=== PATIENT | female | born 1995 | race Caucasian/White ===

== ENCOUNTER 2020-10-22 09:57 | Observation (INO) ==
[~2020-10-22 09:57] MED LIST: RINGER'S SOLUTION,LACTATED 1,000 ML IV PRN; ceFAZolin SODIUM 1 GM VIAL IV PRN
--- NOTE | 2020-10-22 10:30 | ERNOTE ---
ER Female HPI Date of Service: 10/22/20 Stated Complaint: Heavy bleeding vaginally Presenting Symptoms: vaginal bleeding Time Seen by Provider: 10/22/20 10:16 Source: patient Exam Limitations: no limitations Immunizations: IMMUNIZATION HX Immunizations Up to Date Yes History of Influenza Vaccine No Hx Pneumococcal Vaccination No Allergies/Adverse Reactions: Allergies prednisone Allergy (Mild, Verified 10/22/20 11:09) Other poison oak extract Allergy (Verified 10/22/20 11:09) Home Medications: HOME MEDICATIONS Topiramate [Topamax] 25 mg PO BID 10/20/20 [Last Taken Unknown] Vilazodone HCl [Viibryd] 20 mg PO DAILY 10/20/20 [Last Taken Unknown] traZODone HCL [Trazodone HCl] 100 mg PO HS 10/20/20 [Last Taken Unknown] Pain Score #1 Pain Score: 6 - History of Present Illness Narrative: The patient is a 25 year old female who presents via POV for vaginal bleeding which has been present for 4 days. There are associated symptoms of low pelvic cramping. The patient reports pain to diffuse low pelvic and suprapubic, 6/10. There are no alleviating factors. There are no aggravating factors. Previous treatments have included: none. The past medical history includes: anxiety and depression. The social history is positive for occasional use of e-cigarettes. The patient has had no known ill contacts. Patient states she was previously using Depo-Provera with last injection being in July then in October switched to oral contraceptive. Patient denies previous or event of heavy vaginal bleeding. Patient states that she has been wearing an attends brief due to amount of vaginal bleeding. Patient states she has been filling a pad an hour. Patient states that she has felt shaky and anxious without chest pain or shortness of breath. Patient states she does become lightheaded and feels as thought symptoms resolve when she leans forward. Review of Systems - Review of Systems Constitutional: Present: weakness, fatigue. Absent: fever, chills EYE: Present: no symptoms reported. Absent: vision changes ENT: Present: no symptoms reported. Absent: ear pain, nasal drainage, sore throat Respiratory: Present: no symptoms reported. Absent: shortness of breath, cough Cardiology: Present: no symptoms reported. Absent: chest pain Gastrointestinal/Abdominal: Present: abdominal pain. Absent: nausea, vomiting, diarrhea Genitourinary: Present: other - vaginal bleeding. Absent: dysuria Musculoskeletal: Present: no symptoms reported Skin: Present: no symptoms reported. Absent: rash Neurological: Present: dizziness/light-headedness, weakness. Absent: headache All Other Systems: All systems neg except as marked Medical History (Last Reviewed 10/22/20 @ 10:21 by KATHERYN Higgins) Anxiety Depression Surgical History: Surgical History (Last Reviewed 10/22/20 @ 10:20 by KATHERYN Higgins) History of tonsillectomy Family History: Family History (Last Reviewed 10/22/20 @ 10:20 by KATHERYN Higgins) Other No pertinent family history Social History: (Last Reviewed 10/22/20 @ 10:20 by KATHERYN Higgins) Tobacco: Smoking Status: Former smoker tobacco type: e-cigarettes Alcohol: alcohol intake frequency: a few times a month Substance Use: substance use type: does not use Physical Exam - Physical Exam General Appearance: Present: wd/wn, alert, mild distress Head Exam: Present: normal inspection, no evidence of injury Eye Exam: Normal inspection: bilateral, PERRL: bilateral, EOMI: bilateral, Conjunctivae pale: bilateral - mild Ears, Nose, Throat: Present: normal ENT inspection, normal pharynx Neck: Present: normal inspection Respiratory: Present: no respiratory distress, normal breath sounds, no accessory muscle use, lungs clear Cardiovascular/Chest: Present: no murmur, tachycardia Gastrointestinal/Abdominal: Present: normal bowel sounds, nondistended, soft, no organomegaly, tenderness - diffuse lower abdomen Pelvic Exam: Present: active bleeding - moderate amount of active bleeding with blood pooling in vaginal vault >20ml, large clots with clots within the os, cervical motion tendernes, tender uterus. Absent: tender adnexa Extremity Exam: Present: no edema Neurological Exam: Present: alert, oriented, normal mood/affect, no motor/sensory deficits Skin Exam: Present: normal color, warm/dry Progress - Date and Time Seen: Date and Time: 10/22/20 10:30 Records were requested to be obtained from [facility] in [place] which is where patient was seen and evaluated with outpatient testing yesterday, 10/21/2020. 10/22/20 10:35 Patient was scheduled for follow up with Dr.Mariusz today but due to concern of patient having shortness of breath was sent to ER for medical evaluation. Patient denies shortness of breath but states she feels anxious and shaky. 10/22/20 10:50 Records obtained from [facility] outpatient testing yesterday showing Hgb 8.8. Patient's WBC is slightly elevated from yesterday 11.6 to 12.6, this is likely associated with volume loss. Pelvic ultrasound showed a large heterogeneously echogenic fluid collection in the endometrial cavity that suggested a solid mass concerning for large hematoma. Urologist recommended at that time gynecological consultation. I assume that this is why patient was scheduled for outpatient evaluation with Dr. Vee today. 10/22/20 11:08 Previous visits, lab results over visits from 10/20 through today, pelvic ultrasound results in 2 days exam were reviewed and discussed with Dr. Breen. recommends double dose of control pill through remaining a pack and allowing patient to attempt to pass large clot on her own. Patient needs to be scheduled for follow-up to ensure tolerance and improvement. This plan was discussed with patient and she does not feel comfortable with plan, will reassess following IV hydration. 10/22/20 12:14 Patient remains to have symptoms of dizziness with position changes and anxiety. contacted ER to check on patient progress and states will proceed to ER to evaluate patient for presumed plan for D&C. Will send COVID testing for pre-op in house. Patient verbalizes understanding of plan. 10/22/20 12:49 present and plan for D&C. - Results and Orders Patient's Lab Results:: I have reviewed the patient's lab results. - Vital Signs Patient's Vital Signs:: I have reviewed the patient's vital signs. Vital Signs: Vital Signs 10/22/20 10:10 Pulse Rate 102 H Respiratory Rate 14 Blood Pressure 137/83 O2 Sat by Pulse Oximetry 98 - Progress/Reassessment Chief Complaint: Genitourinary Problem Departure Clinical Impression: Menorrhagia Qualifiers: Menorrhagia type: with irregular cycle Qualified Code(s): N92.1 - Excessive and frequent menstruation with irregular cycle - Departure Disposition: Still a patient Condition: Stable
[2020-10-22 10:32] LABS: Hematocrit 25.8 % (37.0-47.0); Hemoglobin 8.1 gm/dL (12.5-16.0); Mean Cell Volume 86.9 fl (78-100); Mean Corpuscular Hemoglobin 27.3 pg (27-31); Mean Corpuscular Hgb Conc 31.4 g/dl (32-36); Mean Platelet Volume 9.1 fl (8-12.5); Neutrophil # 8.8 K/mm3 (1.3-6.0); Platelet Count 262 K/mm3 (150-450); Red Blood Count 2.97 M/mm3 (4.2-5.4); Red Cell Distribution Width 14.2 % (11.5-14.0); White Blood Count 12.6 K/mm3 (4.0-10.5)
[2020-10-22] MEDS ORDERED: NORMAL SALINE 500 ML IV PRN (10:39)
[2020-10-22 10:49] LABS: Albumin * 3.1 gm/dl (3.4-5.0); Anion Gap 10.6 mmol/L (6.8-13.8); BUN/Creatinine Ratio 13.9 (9.0-21.6); Bilirubin, Total 0.2 mg/dL (0.0-1.1); Ca. Corrected For Albumin 8.7 mg/dL (8.4-10.2); Calcium * 8.3 mg/dL (7.9-10.9); Carbon Dioxide 23.8 mmol/L (24-32.6); Potassium 3.4 mmol/L (3.4-4.6); Total Protein 6.6 gm/dL (6.2-8.2)
[2020-10-22] MEDS ORDERED: LIDOCAINE HCL/EPINEPHRINE 50 ML VIAL IJ ONE ×2 (12:50→14:45)
[2020-10-22] MEDS ORDERED: Silver Nitrate Applicator 10 EACH PACKET TP ONE (12:51)
[2020-10-22] MEDS: NORMAL SALINE 1,000 ML IV PRN ×2 (13:02→14:30)
--- NOTE | 2020-10-22 13:06 | HP ---
Chief Complaint - Chief Complaint Date of Service: 10/22/20 Time of Service: 12:59 Chief Complaint: heavy vaginal bleeding History of Present Illness: 25 year old with a 5 day history of heavy vaginal bleeding. She is soaking through many pads. She has dropped her hemoglobin 3 units, is persistently tachycardic. No other concerns. Medical History (Last Reviewed 10/22/20 @ 13:00 by Patrizia Vee MD) Anxiety Depression Surgical History: Surgical History (Last Reviewed 10/22/20 @ 13:00 by Patrizia Vee MD) History of tonsillectomy Family History: Family History (Last Reviewed 10/22/20 @ 13:00 by Patrizia Vee MD) Other No pertinent family history Social History: (Last Reviewed 10/22/20 @ 13:00 by Patrizia Vee MD) Tobacco: Smoking Status: Former smoker tobacco type: e-cigarettes Alcohol: alcohol intake frequency: a few times a month Substance Use: substance use type: does not use Review Of Systems (GEN) - Review of Systems Generalized/Overall Review: Present: No Symptoms Reported Misc: All systems neg except as marked Immunizations: IMMUNIZATION HX Immunizations Up to Date Yes History of Influenza Vaccine No Hx Pneumococcal Vaccination No Allergies/Adverse Reactions: Allergies Allergy/AdvReac Type Severity Reaction Status Date / Time prednisone Allergy Mild Other Verified 10/22/20 11:09 poison oak extract Allergy Verified 10/22/20 11:09 Home Medications: HOME MEDICATIONS Topiramate [Topamax] 25 mg PO BID 10/20/20 [Last Taken Unknown] Vilazodone HCl [Viibryd] 20 mg PO DAILY 10/20/20 [Last Taken Unknown] traZODone HCL [Trazodone HCl] 100 mg PO HS 10/20/20 [Last Taken Unknown] Exam - Exam Vital Signs: Vital Signs - Last Taken Temp 36.8 C 10/22/20 12:33 Pulse 94 10/22/20 12:33 Resp 14 10/22/20 12:33 BP 109/60 10/22/20 12:33 Pulse Ox 100 10/22/20 12:33 Constitutional: Present: Alert, Oriented x3, Cooperative, No distress ENT Exam: Present: hearing grossly normal Eye Exam: bilateral eye: normal inspection Neck: Present: normal inspection Breasts: Present: Exam deferred Respiratory: Present: lungs clear, normal breath sounds, no respiratory distress Cardiovascular/Chest: Present: regular rate, rhythm Abdomen: Present: soft, nontender, nondistended /Rectal: Present: Exam deferred, Other - heavy vaginal bleeding on the pad Extremity: Present: non-tender, no calf tenderness Skin Exam: Present: normal color, warm/dry, no cyanosis Neurologic: Present: alert, normal mood/affect, oriented x 3 Appearance: Present: appropriate appearance, appropriate insight, neat, no memory impairment Eye contact: Present: cooperative, good eye contact, normal speech Thoughts: Present: normal thought pattern Diagnostic Studies: Abnormal Lab Results 10/22/20 10/22/20 Range/Units 10:26 10:26 WBC 12.6 H (4.0-10.5) K/mm3 RBC 2.97 L (4.2-5.4) M/mm3 Hgb 8.1 L (12.5-16.0) gm/dL Hct 25.8 L (37.0-47.0) % MCHC 31.4 L (32-36) g/dl RDW 14.2 H (11.5-14.0) % Immature Gran % (Auto) 0.60 H (0.001-0.429) % Immature Gran # (Auto) 0.08 H (0.000-0.0310) K/mm3 Neutrophils # 8.8 H (1.3-6.0) K/mm3 Chloride 108 H (97-106) mmol/L Carbon Dioxide 23.8 L (24-32.6) mmol/L Albumin 3.1 L (3.4-5.0) gm/dl Laboratory Results WBC 12.6 K/mm3 (4.0-10.5) H 10/22/20 10:26 RBC 2.97 M/mm3 (4.2-5.4) L 10/22/20 10:26 Hgb 8.1 gm/dL (12.5-16.0) L 10/22/20 10:26 Hct 25.8 % (37.0-47.0) L 10/22/20 10: MCV 86.9 fl (78-100) 10/22/20 10: MCH 27.3 pg (27-31) 10/22/20 10: MCHC 31.4 g/dl (32-36) L 10/22/20 10:26 RDW 14.2 % (11.5-14.0) H 10/22/20 10:26 Plt Count 262 K/mm3 (150-450) 10/22/20 10:26 MPV 9.1 fl (8-12.5) 10/22/20 10:26 Immature Gran % (Auto) 0.60 % (0.001-0.429) H 10/22/20 10:26 Immature Gran # (Auto) 0.08 K/mm3 (0.000-0.0310) H 10/22/20 10:26 Neutrophils % 70.0 % (42-75.0) 10/22/20 10: Lymphocytes % 22.2 % (20-51) 10/22/20 10: Monocytes % 6.1 % (0.0-9) 10/22/20 10: Eosinophils % 0.9 % (0.0-3.0) 10/22/20 10: Basophils % 0.2 % (0.0-1.0) 10/22/20 10:26 Nucleated RBC % 0.0 k/mm3 (0-1) 10/22/20 10:26 Neutrophils # 8.8 K/mm3 (1.3-6.0) H 10/22/20 10:26 Lymphocytes # 2.79 k/mm3 (1.5-3.5) 10/22/20 10: Monocytes # 0.8 k/mm3 (0.0-1.0) 10/22/20 10: Eosinophils # 0.1 k/mm3 (0.0-0.7) 10/22/20 10:26 Absolute Basophils 0.0 k/mm3 (0.0-0.1) 10/22/20 10:26 Sodium 139 mmol/L (132-142) 10/22/20 10:26 Plasma Sodium 139 mmol/L (130-142) 10/22/20 10:26 Potassium 3.4 mmol/L (3.4-4.6) 10/22/20 10:26 Chloride 108 mmol/L (97-106) H 10/22/20 10:26 Carbon Dioxide 23.8 mmol/L (24-32.6) L 10/22/20 10:26 Anion Gap 10.6 mmol/L (6.8-13.8) 10/22/20 10:26 BUN 10 mg/dL (3-23) 10/22/20 10:26 Creatinine 0.72 mg/dL (0.4-1.4) 10/22/20 10:26 Est GFR (Non-Af Amer) 107 mL/min (60-130) D 10/22/20 10:26 BUN/Creatinine Ratio 13.9 (9.0-21.6) 10/22/20 10:26 Random Glucose 85 mg/dL (70-110) D 10/22/20 10:26 Calcium 8.3 mg/dL (7.9-10.9) 10/22/20 10:26 Calcium Adj for Albumin 8.7 mg/dL (8.4-10.2) 10/22/20 10:26 Total Bilirubin 0.2 mg/dL (0.0-1.1) 10/22/20 10:26 AST 42 U/L (0-48) 10/22/20 10:26 ALT 61 U/L (19-67) 10/22/20 10:26 Alkaline Phosphatase 79 U/L (50-170) 10/22/20 10:26 Total Protein 6.6 gm/dL (6.2-8.2) 10/22/20 10:26 Albumin 3.1 gm/dl (3.4-5.0) L 10/22/20 10:26 Serum HCG, Qual Negative (NEGATIVE) 10/22/20 10:30 Assessment/Plan - Narrative Narrative: Proceed with D&C, hysteroscopy. All risks, benefits, and alternatives were explained to the patient and the patient consented to the procedure. The patient received an IVF bolus. Continue IVF until surgery Covid test administered. Awaiting results since the patient is currently hemodynamically stable Pelvic US showed a possible large clot versus mass Admit for overnight observation to determine true blood loss. The patient and her aunt were counseled that she might need either an iron infusion or blood products once true blood loss is determined She wishes to continue OCPs after surgical intervention - Assessment/Plan (1) Abnormal uterine bleeding Problem: Acute (2) Tachycardia Problem: Acute
[2020-10-22] MEDS ORDERED: ACETAMINOPHEN 500 MG TABLET PO PRN (13:08)
[2020-10-22] MEDS ORDERED: LIDOCAINE HCL 20 ML VIAL ONE (14:14)
[2020-10-22] MEDS ORDERED: KETOROLAC TROMETHAMINE 30 MG/ML VIAL ONE (14:15)
[2020-10-22] MEDS ORDERED: fentaNYL CITRATE/PF 50 MCG/ML AMPUL ONE (14:15)
[2020-10-22] MEDS ORDERED: ONDANSETRON HCL/PF 2 MG/ML VIAL ONE (14:22)
--- NOTE | 2020-10-22 15:17 | OR ---
Operative Report - Dictated Report Narrative: Preoperative diagnosis: AUB Postoperative diagnosis: AUB, thickened endometrial lining, uterine septum Procedure: hysteroscopy, D&C Description of the procedure: The patient was taken to the operating room where MAC anesthesia was induced. She was prepped and draped in the lithotomy position in the standard surgical fashion. Attention was then turned to the vagina. A sterile speculum was placed in the vagina. The anterior lip of the cervix was grasped with a single toothed tenaculum. A bilateral paracervical block was performed using a total of 20 mL of lidocaine with epinephrine. The cervical os was gently dilated to an 18F diameter to accommodate the hysteroscope without difficulty. The uterine cavity was directly visualized. The bilateral tubal ostias were visualized and a uterine septum was seen as well. A large clot was removed with the irrigation. The lining was thick anteriorly and posteriorly. A curette was used and endometrial curettings were sent for pathological analysis. All instruments were removed from the patient's vagina. Hemostasis was adequate. All sponge, lap, and needle counts were correct. The patient tolerated the procedure well. She was transferred to the recovery room in stable condition. EBL: minimal Complications: none Specimens: endometrial curettings
--- NOTE | 2020-10-22 15:18 | ANES ---
Anesthesia Pre Procedure Eval Vitals/Labs: Last Vital Signs Temp 36.8 C 10/22/20 14:09 Pulse 97 10/22/20 13:53 Resp 14 10/22/20 13:53 BP 114/56 10/22/20 13:53 Pulse Ox 99 10/22/20 13:53 HOME MEDICATIONS Topiramate [Topamax] 25 mg PO BID 10/20/20 [Last Taken Unknown] Vilazodone HCl [Viibryd] 20 mg PO DAILY 10/20/20 [Last Taken Unknown] traZODone HCL [Trazodone HCl] 100 mg PO HS 10/20/20 [Last Taken Unknown] Allergies/Adverse Reactions: Allergies Allergy/AdvReac Type Severity Reaction Status Date / Time prednisone Allergy Mild Other Verified 10/22/20 11:09 poison oak extract Allergy Verified 10/22/20 11:09 - Planned Procedure Planned Procedure: Heavy bleeding vaginally Medication List Reviewed:: Yes Allergies Verified: Yes Medical History (Last Reviewed 10/22/20 @ 15:17 by Dominick Aceves CRNA) Anxiety Depression Surgical History (Last Reviewed 10/22/20 @ 15:17 by Dominick Aceves CRNA) History of tonsillectomy Family History (Last Reviewed 10/22/20 @ 15:17 by Dominick Aceves CRNA) Other No pertinent family history - Family Anesthesia History Family History:: no untoward family reactions to anesthesia - Airway/Neck/Teeth Within Normal Limits:: Yes Teeth Condition: intact Neck Exam: full range of motion Mallampatti Score: 2 Thyromental (T-M) distance: > 6 cm Mandibulo Hyoid distance: > 3 cm - Respiratory Respiratory Physical: lungs clear Smoking Status: Never smoker Sleep Apnea currently treated: No Sleep Apnea by current assessment: No - Cardiovascular Tolerate Activity: Good Heart Sounds: S1 & S2, Regular - Gastrointestinal NPO since: MN - Anesthesia Assessment and Plan ASA Class: PS, II, E Anesthesia Type Plan: General LMA Planned difficult intubation/equipment available: No
--- NOTE | 2020-10-22 15:18 | ANES ---
Post Anesthesia Discharge - Transfer of Care Transfer of Care handoff given to nurse: Yes - Discharge from PACU Discharge from PACU when meets criteria: Yes
[2020-10-22] MEDS: IBUPROFEN 400 MG TABLET PO PRN (18:59)
[2020-10-22] MEDS: TOPIRAMATE 50 MG TABLET PO SCH (20:44)
[2020-10-22] MEDS ORDERED: traZODone HCL 50 MG TABLET PO SCH (21:00)
[2020-10-22] MEDS ORDERED: TOPIRAMATE 50 MG TABLET PO SCH (21:00)
[2020-10-23 06:43] LABS: Mean Cell Volume 89.2 fl (78-100); Mean Corpuscular Hemoglobin 26.8 pg (27-31); Mean Corpuscular Hgb Conc 30.1 g/dl (32-36); Mean Platelet Volume 9.3 fl (8-12.5); Platelet Count 208 K/mm3 (150-450); Red Blood Count 2.31 M/mm3 (4.2-5.4); Red Cell Distribution Width 14.4 % (11.5-14.0); White Blood Count 8.5 K/mm3 (4.0-10.5)
[2020-10-23 06:50] LABS: Hemoglobin 6.2 gm/dL (12.5-16.0)
[2020-10-23 06:51] LABS: Hematocrit 20.6 % (37.0-47.0)
--- NOTE | 2020-10-23 07:41 | PN ---
Subjective - Date and Time Seen Date: 10/23/20 Time: 07:39 Subjective Narrative: The patient reports minimal vaginal bleeding. No other concerns. Objective Objective Narrative: See vital signs - Review of Systems Generalized/Overall Review: Reports: No Symptoms Reported Misc: All systems neg except as marked - Vitals Vitals: Last Vital Signs Temp 36.9 C 10/23/20 06:57 Pulse 90 10/23/20 06:57 Resp 16 10/23/20 06:57 BP 128/65 10/23/20 06:57 Pulse Ox 98 10/23/20 06:57 - Abnormal Lab Findings Abnormal Lab Findings: Abnormal Lab Results 10/22/20 10/22/20 10/23/20 Range/Units 10:26 10:26 06:31 WBC 12.6 H (4.0-10.5) K/mm3 RBC 2.97 L 2.31 L (4.2-5.4) M/mm3 Hgb 8.1 L 6.2 L* D (12.5-16.0) gm/dL Hct 25.8 L 20.6 L* D (37.0-47.0) % MCH 26.8 L (27-31) pg MCHC 31.4 L 30.1 L (32-36) g/dl RDW 14.2 H 14.4 H (11.5-14.0) % Immature Gran % (Auto) 0.60 H (0.001-0.429) % Immature Gran # (Auto) 0.08 H (0.000-0.0310) K/mm3 Neutrophils # 8.8 H (1.3-6.0) K/mm3 Chloride 108 H (97-106) mmol/L Carbon Dioxide 23.8 L (24-32.6) mmol/L Albumin 3.1 L (3.4-5.0) gm/dl - Exam Constitutional: Present: Alert, Oriented x3, Cooperative, No distress ENT Exam: Present: hearing grossly normal Abdomen: Present: soft, nontender, nondistended Extremity: Present: non-tender, no calf tenderness Skin Exam: Present: normal color, warm/dry, no cyanosis Neurologic: Present: alert, normal mood/affect, oriented x 3 Appearance: Present: appropriate appearance, appropriate insight, neat, no memory impairment Eye contact: Present: cooperative, good eye contact, normal speech Thoughts: Present: normal thought pattern Assessment/Plan Plan Narrative: POD 1 s/p hysteroscopy, D&C Vaginal bleeding is minimal since surgery Acute blood loss anemia secondary to menstrual blood loss: transfuse 2 units of PRBCs. Recheck CBC 1 hour after transfusion Discharge after appropriate rise in hemoglobin - Problems/Diagnosis (1) Abnormal uterine bleeding Problem: Acute (2) Tachycardia Problem: Acute
--- NOTE | 2020-10-23 07:48 | DS ---
(1) Abnormal uterine bleeding Problem: Acute (2) Tachycardia Problem: Acute (3) Acute blood loss anemia Problem: Acute Date of Discharge:: 10/23/20 Hospital Course: The patient was admitted after hysteroscopy, D&C to determine actual extent of blood loss. Two units of PRBCs have been ordered. Her blood loss is minimal this morning. Procedures Performed: see notes below List Procedures: Hysteroscopy, D&C Results and Findings: Lab Pending Results 10/22/20 10:26: WBC 12.6 H, RBC 2.97 L, Hgb 8.1 L, Hct 25.8 L, MCV 86.9, MCH 27.3, MCHC 31.4 L, RDW 14.2 H, Plt Count 262, MPV 9.1, Immature Gran % (Auto) 0.60 H, Immature Gran # (Auto) 0.08 H, Neutrophils % 70.0, Lymphocytes % 22.2, Monocytes % 6.1, Eosinophils % 0.9, Basophils % 0.2, Nucleated RBC % 0.0, Neutrophils # 8.8 H, Lymphocytes # 2.79, Monocytes # 0.8, Eosinophils # 0.1, Absolute Basophils 0.0 10/22/20 10:26: Sodium 139, Plasma Sodium 139, Potassium 3.4, Chloride 108 H, Carbon Dioxide 23.8 L, Anion Gap 10.6, BUN 10, Creatinine 0.72, Est GFR (Non-Af Amer) 107 D, BUN/Creatinine Ratio 13.9, Random Glucose 85 D, Calcium 8.3, Calcium Adj for Albumin 8.7, Total Bilirubin 0.2, AST 42, ALT 61, Alkaline Phosphatase 79, Total Protein 6.6, Albumin 3.1 L 10/22/20 10:30: Serum HCG, Qual Negative 10/22/20 12:27: SARS-CoV-2 (PCR) Not detected 10/22/20 14:45: Pathology Specimen Spec to path 10/23/20 06:31: WBC 8.5 D, RBC 2.31 L, Hgb 6.2 L* D, Hct 20.6 L* D, MCV 89.2, MCH 26.8 L, MCHC 30.1 L, RDW 14.4 H, Plt Count 208, MPV 9.3, Immature Gran % (Auto) 0.40, Immature Gran # (Auto) 0.03, Neutrophils % 59.0, Lymphocytes % 31.7, Monocytes % 8.0, Eosinophils % 0.8, Basophils % 0.1, Nucleated RBC % 0.0, Neutrophils # 5.0, Lymphocytes # 2.69, Monocytes # 0.7, Eosinophils # 0.1, Absolute Basophils 0.0 10/23/20 06:31: Ferritin 25 Discharge Location: Home Disposition: Home self-care Condition: Good Discharge Activity: Activity as tolerated Discharge Diet: General/regular food Additional Patient Instructions (free text): Follow-up in 4 weeks Prescriptions (Any new or edited meds): Norethindrone AC-Eth Estradiol [Microgestin 21 1.5-30 Tab] 1 ea PO DAILY #42 tab Transmission Status: Pending to [facility] #[id number] Complete Home Medications List: Complete Home Medication List: Topiramate [Topamax] 50 mg PO BID 10/20/20 Vilazodone HCl [Viibryd] 20 mg PO DAILY 10/20/20 traZODone HCL [Trazodone HCl] 100 mg PO HS 10/20/20 Norethindrone AC-Eth Estradiol [Microgestin 21 1.5-30 Tab] 1 ea PO DAILY #42 tab 10/23/20
[2020-10-23] MEDS: TOPIRAMATE 50 MG TABLET PO SCH (08:55)
[2020-10-23] MEDS: IBUPROFEN 400 MG TABLET PO PRN (09:00)
[2020-10-23] MEDS ORDERED: MEDROXYPROGESTERONE ACETATE 5 MG TABLET PO SCH (09:00)
[2020-10-23 15:24] LABS: Hematocrit 29.3 % (37.0-47.0); Hemoglobin 9.4 gm/dL (12.5-16.0); Mean Cell Volume 88.5 fl (78-100); Mean Corpuscular Hemoglobin 28.4 pg (27-31); Mean Corpuscular Hgb Conc 32.1 g/dl (32-36); Mean Platelet Volume 9.5 fl (8-12.5); Platelet Count 218 K/mm3 (150-450); Red Blood Count 3.31 M/mm3 (4.2-5.4); Red Cell Distribution Width 14.3 % (11.5-14.0); White Blood Count 8.7 K/mm3 (4.0-10.5)
[2020-10-23 17:21] VITALS: BP 150/72
== END 2020-10-23 17:00 | disposition home or self-care (01) ==
LOC: ER 09:57 → SUR 13:12 → MS 13:12
PROVIDERS: ADMIT Obstetrics & Gynecology; ATTEND Obstetrics & Gynecology